=== PATIENT | female | born 1950 | race Caucasian/White ===

== ENCOUNTER 2022-10-16 20:15 | Inpatient (IN) | payer OTHER, MEDICARE ==
[2022-10-16] MEDS ORDERED: fentaNYL 50 mcg/mL 1 mL Vial ONE (21:36)
[2022-10-16 21:41] LABS: #Eosinphils 0.1 thou/uL (0.0-0.7); #Lymphocytes 0.5 thou/uL (1.20-3.40); #Monocytes 0.4 thou/uL (0.11-0.59); #Neutrophils 9.6 thou/uL (1.40-6.50); %Basophils 0.1 % (0.0-1.0); %Eosinophils 0.5 % (0.0-10.0); %Monocytes 4.2 % (0.0-10.0); %Neutrophils 90.2 % (42.0-75.0); Hemoglobin 13.8 g/dL (12.0-16.0); Mean Corpuscular HGB CONC 34.2 g/dL (32.0-36.0); Mean Corpuscular Volume 93.5 fl (78.0-98.0); Mean Platelet Volume 8.3 fL (7.4-10.4); Platelet Count 181 10x3/uL (130-400); RBC Distribution Width 11.9 % (11.5-14.5); White Blood Cell (WBC) Count 10.6 10x3/uL (4.8-10.8)
[2022-10-16 22:02] LABS: ALT (SGPT) 18 U/L (8-55); AST (SGOT) 19 U/L (5-34); Albumin 4.1 g/dL (3.4-4.8); Alkaline Phosphatase 51 U/L (40-110); Anion Gap 12 mmol/L (10-20); BUN (Urea Nitrogen) 16 mg/dL (9.8-20.1); Bilirubin, Total 0.5 mg/dL (0.2-1.2); Calc. Creatinine Clearance 0 mL/min (70-130); Calcium 8.6 mg/dL (7.8-10.44); Carbon Dioxide 22 mmol/L (23-31); Chloride 109 mmol/L (98-107); Estimated GFR 74; Globulin 2.6 g/dL (2.4-3.5); Glucose 130 mg/dL (83-110); Potassium 3.9 mmol/L (3.5-5.1); Protein, Total 6.7 g/dL (5.8-8.1); Sodium 139 mmol/L (136-145)
[2022-10-16] MEDS ORDERED: hydrALAZINE 20 MG/ML VIAL SLOW IVP PRN (23:19)
[2022-10-16] MEDS ORDERED: Dextrose 5% in Water 1,000 ML IV PRN (23:19)
[2022-10-16] MEDS ORDERED: Morphine 2 MG/ML VIAL SLOW IVP PRN (23:19)
[2022-10-16] MEDS ORDERED: Morphine 4 MG/ML VIAL SLOW IVP PRN (23:19)
[2022-10-16] MEDS ORDERED: Ipratropium/Albuterol 3 ML NEB NEB PRN (23:19)
[2022-10-16] MEDS ORDERED: Ondansetron ODT 4 MG TAB PO PRN (23:19)
[2022-10-16] MEDS ORDERED: Ondansetron PF 4 MG/2 ML Vial IVP PRN ×2 (23:19→23:26)
[2022-10-16] MEDS ORDERED: Dextrose 50% Abboject 50 ML SYRINGE SLOW IVP PRN (23:19)
[2022-10-16] MEDS ORDERED: traMADol HCl 50 MG TAB PO PRN (23:26)
[2022-10-16] MEDS ORDERED: Cyclobenzaprine 10 MG TAB PO PRN (23:26)
[2022-10-16] MEDS ORDERED: Amitriptyline HCl 25 MG TAB PO SCH (23:30)
[2022-10-16] MEDS ORDERED: Carbidopa/Levodopa 25-100 mg Tablet PO SCH (23:30)
[2022-10-16] MEDS ORDERED: Sodium Chloride 0.9% 1,000 ML IV SCH (23:30)
[2022-10-17] MEDS ORDERED: Morphine 2 MG/ML VIAL ONE (00:02)
[2022-10-17] MEDS: Acetaminophen 500 MG TAB PO SCH ×2 (01:11→04:47)
[2022-10-17] MEDS: traMADol HCl 50 MG TAB PO SCH ×2 (01:12→04:48)
[2022-10-17 01:26] VITALS: BMI 27.1
[2022-10-17 07:04] LABS: #Lymphocytes 0.6 thou/uL (1.20-3.40); #Monocytes 0.3 thou/uL (0.11-0.59); #Neutrophils 4.2 thou/uL (1.40-6.50); %Eosinophils 0.2 % (0.0-10.0); %Monocytes 5.9 % (0.0-10.0); Hemoglobin 11.7 g/dL (12.0-16.0); Mean Corpuscular HGB CONC 32.2 g/dL (32.0-36.0); Mean Corpuscular Hemoglobin 30.2 pg (27.0-31.0); Mean Corpuscular Volume 93.7 fl (78.0-98.0); Mean Platelet Volume 8.6 fL (7.4-10.4); Platelet Count 173 10x3/uL (130-400); RBC Distribution Width 11.9 % (11.5-14.5); Red Blood Cell (RBC) Count 3.89 mill/uL (4.20-5.40); White Blood Cell (WBC) Count 5.1 10x3/uL (4.8-10.8)
[2022-10-17 07:25] LABS: Phosphorus 2.7 mg/dL (2.3-4.7)
[2022-10-17 07:26] LABS: Anion Gap 11 mmol/L (10-20); BUN (Urea Nitrogen) 15 mg/dL (9.8-20.1); Calc. Creatinine Clearance 79 mL/min (70-130); Calcium 7.9 mg/dL (7.8-10.44); Carbon Dioxide 21 mmol/L (23-31); Chloride 112 mmol/L (98-107); Estimated GFR 82; Glucose 94 mg/dL (83-110); Magnesium 1.9 mg/dL (1.6-2.6); Potassium 3.7 mmol/L (3.5-5.1); Sodium 140 mmol/L (136-145)
[2022-10-17] MEDS ORDERED: fentaNYL PF 100 MCG/2 ML SYRINGE ONE (08:08)
[2022-10-17] MEDS: Polyethylene Glycol 3350 17 GM Packet PO SCH (08:14)
[2022-10-17] MEDS ORDERED: PHOS-NAK 1 PKT PACK PO SCH (08:15)
[2022-10-17] MEDS ORDERED: Magnesium 2 GM/50 ML(in water) 2 GM in Premix Bag 1 BAG IVPB SCH (08:15)
[2022-10-17] MEDS ORDERED: Acetaminophen/Codeine 30-300mg Tablet PO PRN (08:17)
[2022-10-17] MEDS ORDERED: Amitriptyline HCl 25 MG TAB PO SCH (09:00)
[2022-10-17] MEDS ORDERED: Rosuvastatin 20 MG TAB PO SCH (09:00)
[2022-10-17] MEDS ORDERED: Carbidopa/Levodopa 25-100 mg Tablet PO SCH (09:00)
[2022-10-17] MEDS: Famotidine 20 MG TAB PO SCH ×2 (09:31→21:11)
[2022-10-17] MEDS: Senokot S 8.6-50 MG TAB PO SCH ×2 (09:32→21:21)
[2022-10-17] MEDS: Famotidine/PF 20 mg/2ml Vial SLOW IVP SCH ×2 (09:32→21:44)
[2022-10-17] MEDS: Multivit, Therapeutic 1 TAB PO SCH (09:32)
[2022-10-17] MEDS ORDERED: Bupivacaine/Epinephrine 0.25% 30 ML VIAL ONE (09:41)
[2022-10-17] MEDS: Acetaminophen 325 MG TAB PO SCH ×3 (09:48→21:11)
[2022-10-17] MEDS ORDERED: CEFAZOLIN 2 GM VIAL ONE (09:49)
[2022-10-17] MEDS ORDERED: Sodium Chloride 0.9% 100 ML ONE (09:49)
[2022-10-17] MEDS: Primidone 50 MG TAB PO SCH (10:00)
[2022-10-17] MEDS ORDERED: ePHEDrine Sulfate 50 MG/10 ML VIAL ONE (10:05)
[2022-10-17] MEDS ORDERED: PROPOFOL 200 MG/20 ML VIAL ONE (10:05)
[2022-10-17] MEDS ORDERED: Ondansetron PF 4 MG/2 ML Vial ONE (10:05)
[2022-10-17] MEDS ORDERED: Ondansetron HCl/PF 4 MG/2 ML Vial IVP PRN (11:20)
[2022-10-17] MEDS ORDERED: Promethazine HCl 25 MG/ML VIAL IM PRN (11:20)
[2022-10-17] MEDS: Acetaminophen/Codeine 30-300mg Tablet PO SCH ×3 (12:48→23:34)
[2022-10-17] MEDS: Ibuprofen 200 MG TAB PO PRN (21:10)
[2022-10-17] MEDS: Carbidopa/Levodopa 10-100 mg Tablet PO SCH (21:11)
[2022-10-17] MEDS: Rosuvastatin 20 MG TAB PO SCH (21:17)
[2022-10-17] MEDS: Amitriptyline HCl 25 MG TAB PO SCH (21:17)
[2022-10-18] MEDS: Acetaminophen 325 MG TAB PO SCH ×4 (03:58→21:40)
[2022-10-18] MEDS: Acetaminophen/Codeine 30-300mg Tablet PO SCH ×4 (05:22→23:46)
[2022-10-18 07:05] LABS: #Monocytes 0.6 thou/uL (0.11-0.59); #Neutrophils 3.2 thou/uL (1.40-6.50); %Basophils 0.3 % (0.0-1.0); %Eosinophils 0.9 % (0.0-10.0); %Monocytes 11.6 % (0.0-10.0); %Neutrophils 67.1 % (42.0-75.0); Hemoglobin 10.9 g/dL (12.0-16.0); Mean Corpuscular HGB CONC 32.5 g/dL (32.0-36.0); Mean Corpuscular Hemoglobin 30.7 pg (27.0-31.0); Mean Corpuscular Volume 94.5 fl (78.0-98.0); Mean Platelet Volume 8.5 fL (7.4-10.4); Platelet Count 161 10x3/uL (130-400); Red Blood Cell (RBC) Count 3.55 mill/uL (4.20-5.40); White Blood Cell (WBC) Count 4.8 10x3/uL (4.8-10.8)
[2022-10-18 07:28] LABS: Anion Gap 10 mmol/L (10-20); BUN (Urea Nitrogen) 8 mg/dL (9.8-20.1); Calc. Creatinine Clearance 79 mL/min (70-130); Calcium 7.9 mg/dL (7.8-10.44); Carbon Dioxide 22 mmol/L (23-31); Chloride 111 mmol/L (98-107); Estimated GFR 82; Glucose 98 mg/dL (83-110); Magnesium 2.3 mg/dL (1.6-2.6); Potassium 3.9 mmol/L (3.5-5.1); Sodium 139 mmol/L (136-145)
[2022-10-18] MEDS: Primidone 50 MG TAB PO SCH (08:56)
[2022-10-18] MEDS: Ibuprofen 200 MG TAB PO PRN (08:58)
[2022-10-18] MEDS: Famotidine/PF 20 mg/2ml Vial SLOW IVP SCH ×2 (08:59→21:40)
[2022-10-18] MEDS: Polyethylene Glycol 3350 17 GM Packet PO SCH (08:59)
[2022-10-18] MEDS: Famotidine 20 MG TAB PO SCH ×2 (08:59→21:39)
[2022-10-18] MEDS: Multivit, Therapeutic 1 TAB PO SCH (08:59)
[2022-10-18] MEDS: Senokot S 8.6-50 MG TAB PO SCH ×2 (09:04→21:40)
[2022-10-18] MEDS ORDERED: Carbidopa/Levodopa 25-100 mg Tablet PO SCH (10:00)
[2022-10-18] MEDS: Carbidopa/Levodopa 25-100 mg Tablet PO SCH (11:33)
[2022-10-18] MEDS ORDERED: Rosuvastatin 20 MG TAB PO SCH (21:00)
[2022-10-18] MEDS: Carbidopa/Levodopa 10-100 mg Tablet PO SCH (21:40)
[2022-10-18] MEDS: Amitriptyline HCl 25 MG TAB PO SCH (21:40)
[2022-10-18] MEDS: Rosuvastatin 20 MG TAB PO SCH (21:40)
[2022-10-19] MEDS: Acetaminophen 325 MG TAB PO SCH ×3 (04:44→14:02)
[2022-10-19] MEDS: Acetaminophen/Codeine 30-300mg Tablet PO SCH ×2 (05:29→11:09)
[2022-10-19 06:20] LABS: #Eosinphils 0.2 thou/uL (0.0-0.7); #Lymphocytes 1.1 thou/uL (1.20-3.40); #Monocytes 0.5 thou/uL (0.11-0.59); #Neutrophils 2.8 thou/uL (1.40-6.50); %Basophils 0.8 % (0.0-1.0); %Eosinophils 3.5 % (0.0-10.0); %Lymphocytes 24.3 % (21.0-51.0); %Monocytes 10.9 % (0.0-10.0); %Neutrophils 60.5 % (42.0-75.0); Hemoglobin 10.9 g/dL (12.0-16.0); Mean Corpuscular HGB CONC 32.4 g/dL (32.0-36.0); Mean Corpuscular Hemoglobin 30.6 pg (27.0-31.0); Mean Corpuscular Volume 94.4 fl (78.0-98.0); Mean Platelet Volume 8.5 fL (7.4-10.4); Platelet Count 160 10x3/uL (130-400); Red Blood Cell (RBC) Count 3.56 mill/uL (4.20-5.40); White Blood Cell (WBC) Count 4.6 10x3/uL (4.8-10.8)
[2022-10-19 06:37] LABS: Anion Gap 11 mmol/L (10-20); BUN (Urea Nitrogen) 10 mg/dL (9.8-20.1); Calc. Creatinine Clearance 78 mL/min (70-130); Calcium 8.4 mg/dL (7.8-10.44); Carbon Dioxide 22 mmol/L (23-31); Chloride 110 mmol/L (98-107); Estimated GFR 81; Glucose 86 mg/dL (83-110); Sodium 139 mmol/L (136-145)
[2022-10-19 07:45] VITALS: TEMP 98.4
[2022-10-19] MEDS: Famotidine 20 MG TAB PO SCH (08:03)
[2022-10-19] MEDS: Multivit, Therapeutic 1 TAB PO SCH (08:03)
[2022-10-19] MEDS: Carbidopa/Levodopa 25-100 mg Tablet PO SCH ×2 (08:03→11:10)
[2022-10-19] MEDS: Primidone 50 MG TAB PO SCH (08:03)
[2022-10-19] MEDS: Polyethylene Glycol 3350 17 GM Packet PO SCH (08:03)
[2022-10-19] MEDS: Famotidine/PF 20 mg/2ml Vial SLOW IVP SCH (08:04)
[2022-10-19] MEDS: Senokot S 8.6-50 MG TAB PO SCH (08:04)
[2022-10-19 11:29] VITALS: BP 144/80
== END 2022-10-19 15:40 | disposition home or self-care (01) | DRG 494 ==
LOC: ERS 20:15 → SURG B 23:26
PROVIDERS: ADMIT Surgery; ATTEND Surgery
PROC: 0QSK04Z Reposition Left Fibula with Internal Fixation Device, Open Approach (ICD-10-PCS; principal; 2022-10-17)
PROC: 0QSH04Z Reposition Left Tibia with Internal Fixation Device, Open Approach (ICD-10-PCS; 2022-10-17)
DX: S82.852A Displaced trimalleolar fracture of left lower leg, initial encounter for closed fracture (principal); E78.00 Pure hypercholesterolemia, unspecified; I10 Essential (primary) hypertension; G20 Parkinson's disease; F41.9 Anxiety disorder, unspecified; W01.0XXA Fall on same level from slipping, tripping and stumbling without subsequent striking against object, initial encounter; Z79.899 Other long term (current) drug therapy; Z79.82 Long term (current) use of aspirin
CPT/HCPCS: 36415; 80048; 80053; 83735; 84100; 85025; 93005; C1713; C1769; C1889; G0390; J1650; J2272; J2405; J2704; J3010; J3475; J3490; J7050